=== PATIENT | male | born 1975 | race Caucasian/White ===

== ENCOUNTER → 2017-02-14 | Outpatient (CLI) | payer OTHER ==
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
== END | disposition home or self-care (01) | DRG 395 ==
LOC: RAD 10:34
DX: Z43.3 Encounter for attention to colostomy (principal); K43.9 Ventral hernia without obstruction or gangrene; K59.09 Other constipation
CPT/HCPCS: 74176